=== PATIENT | male | born 1935 | race Caucasian/White ===

== ENCOUNTER 2018-02-10 15:45 | Emergency (ER) | payer MEDICARE, BC ==
[2018-02-10 16:00] VITALS: BP 160/90; PULSE 93; O2SAT 96
--- NOTE | 2018-02-10 16:33 | XRAY ---
Indication: Pain, bruising, and swelling following twisting injury 3 days ago. Comparison: None 3 views of the left ankle demonstrates minimal medial soft tissue swelling. No other bony, articular, or soft tissue abnormalities.
--- NOTE | 2018-02-10 16:43 | ERPHSYRPT ---
- History of Present Illness Time Seen by Provider: 02/10/18 16:37 Source: patient Exam Limitations: no limitations Patient Subjective Stated Complaint: Left ankle pain after hurting himself on Thursday, increased swelling beginning yesterday. Triage Nursing Assessment: Pt presents to the ED with complaints of left ankle swelling. Pt states he was walking on Thursday when he stepped awkwardly causing him to roll his ankle. Pt states pain with touch, but states he is more concerned with the swelling in the ankle. No distress noted, skin PWD. Physician History: patient presents with left ankle pain/injury that occurred about 7 days ago. Patient states that he stepped awkwardly and twisted his left ankle resulting in pain/swelling to the area. Patient have been ambulating, although with some discomfort. Patient noted swelling and discoloration to the medial left ankle and calf area. Patient without any knee or hip complaints or injuries. Patient called his doctor and was told to come to ED and make sure that it's not a DVT. Patient is on aspirin for atrial fib. Patient denies any numbness, tingling or weakness of the distal extremities. Method of Injury: fell, twisted Occurred: days ago (7) Quality: intermittent Severity of Pain-Max: moderate Severity of Pain-Current: mild (intermittent) Lower Extremities Pain: ankle: left Modifying Factors: Improves With: immobilization (improves), movement (worsens) Associated Symptoms: No unable to bear weight, No popping sensation Home Medications: Aspirin [Estrella Chewable] 81 mg PO DAILY 02/10/18 [History] Cyanocobalamin (Vitamin B-12) [Vitamin B12] 2,000 mcg PO DAILY 02/10/18 [History ] Verapamil HCl [Verelan] 120 mg PO TID 02/10/18 [History] Hx Tetanus, Diphtheria Vaccination/Date Given: Yes Hx Influenza Vaccination/Date Given: Yes Hx Pneumococcal Vaccination/Date Given: Yes Immunizations Up to Date: Yes - Review of Systems Constitutional: No Fever, No Chills Eyes: No Symptoms Ears, Nose, & Throat: No Symptoms Respiratory: No Symptoms, No Cough, No Dyspnea Cardiac: No Symptoms, No Chest Pain, No Edema, No Syncope Abdominal/Gastrointestinal: No Abdominal Pain, No Nausea, No Vomiting, No Diarrhea Genitourinary Symptoms: No Symptoms, No Dysuria Musculoskeletal: Fall, Injury, Joint Pain (L ankle), No Back Pain, No Neck Pain Skin: No Rash Neurological: No Dizziness, No Focal Weakness, No Sensory Changes Psychological: No Symptoms Endocrine: No Symptoms Hematologic/Lymphatic: No Symptoms Immunological/Allergic: No Symptoms All Other Systems: Reviewed and Negative - Past Medical History Pertinent Past Medical History: Yes Neurological History: No Pertinent History ENT History: No Pertinent History Cardiac History: Arrhythmia Respiratory History: Asthma Endocrine Medical History: No Pertinent History Musculoskeletal History: No Pertinent History GI Medical History: No Pertinent History History: No Pertinent History Psycho-Social History: No Pertinent History Male Reproductive Disorders: Prostate Cancer - Past Surgical History Past Surgical History: No - Social History Smoking Status: Never smoker Exposure to second hand smoke: No Drug Use: none Patient Lives Alone: No - Nursing Vital Signs Nursing Vital Signs: Initial Vital Signs Temperature 98.6 F 02/10/18 15:55 Pulse Rate 93 H 02/10/18 15:55 Respiratory Rate 16 02/10/18 15:55 Blood Pressure 160/90 02/10/18 15:55 O2 Sat by Pulse Oximetry 96 02/10/18 15:55 Pain Scale Pain Intensity 0 - Physical Exam General Appearance: no apparent distress, alert Eyes, Ears, Nose, Throat Exam: moist mucous membranes Neck Exam: normal inspection, non-tender, supple Cardiovascular/Respiratory Exam: chest non-tender, normal breath sounds, regular rate/rhythm, no respiratory distress Gastrointestinal/Abdominal Exam: non-tender, guarding Back Exam: normal inspection, No vertebral tenderness Hips Exam: bilateral: non-tender, normal inspection, normal range of motion, no evidence of injury Legs Exam: bilateral leg: non-tender, normal inspection, normal range of motion Knees Exam: bilateral knee: non-tender, normal inspection Ankle Exam: right ankle: non-tender, normal inspection, no evidence of injury, left ankle: pain (min pain to palp to medial ankle area), swelling (L proximal medial ankle area), bilateral ankle: normal range of motion Foot Exam: right foot: normal inspection, left foot: ecchymosis (minimal at heel /mid foot area), swelling (mild swelling), bilateral foot: non-tender, normal range of motion DTR - Lower Extremities Exam: knee (R): 2+, knee (L): 2+ Neuro/Tendon Exam: normal sensation, normal motor functions Mental Status Exam: alert, oriented x 3, cooperative Skin Exam: normal color, warm, dry SpO2 Interpretation: normal SpO2: 96 Oxygen Delivery: Room Air - Course Nursing assessment & vital signs reviewed: Yes - Radiology Exams Left Ankle X-ray Interpretation: Teleradiologist Report, Negative - Radiology Ultrasound Exam Venous Lower Extremity Ultrasound: tele radiology report, negative Ordered Tests: Active Orders 24 hr Category Date Time Status ANKLE (3 VIEWS) Stat Exams 02/10/18 16:14 Completed VENOUS UNILAT/LIMITED EXTREMIT [US] Stat Exams 02/10/18 16:57 Taken - Progress Progress: unchanged Progress Note: 02/10/18 16:51 we will get a L ankle x-ray along with left lower venous Doppler to rule out any DVT 02/10/18 17:01 both left ankle x-ray and venous Doppler were negative Counseled pt/family regarding: diagnosis, need for follow-up, rad results - Departure Time of Disposition: 17:01 Departure Disposition: Home Clinical Impression: Left ankle pain Condition: Stable Critical Care Time: No Instructions: Contusion (DC) Additional Instructions: ice, elevate along with Motrin 800 mg every 8 hours with food and/or Tylenol 1 g every 4 hours for pain/swelling. Return for worse pain, swelling, numbness, weakness or any problems.
--- NOTE | 2018-02-10 17:14 | XRAY ---
Indication: Left leg pain. Two-dimensional sonogram and color Doppler imaging of the major venous vessels of the left leg was performed. Comparison: None No thrombus seen in the examined deep venous vessels of the left leg including greater saphenous vein. Veins demonstrate normal compressibility. Venous waveforms are normal with and without augmentation. Impression: Left leg negative for DVT.
== END 2018-02-10 17:15 | disposition home or self-care (01) ==
LOC: ED 15:45
DX: M25.572 Pain in left ankle and joints of left foot (principal); M79.605 Pain in left leg; I48.91 Unspecified atrial fibrillation; Z79.82 Long term (current) use of aspirin; Z79.899 Other long term (current) drug therapy; M25.472 Effusion, left ankle
CPT/HCPCS: 73610; 93971; 99283